=== PATIENT | male | born 1945 | race Caucasian/White ===

== ENCOUNTER → 2024-08-01 09:02 | Outpatient (REF) | payer MEDICARE, OTHER, SELFPAY | LOC: RAD 09:02 | PROVIDERS: ATTENDING PHYSICIAN Physician Assistant Surgical; FAMILY PHYSICIAN Family Medicine | DX: Z96.651 Presence of right artificial knee joint (principal); M25.561 Pain in right knee | CPT/HCPCS: 78315; A9503 ==

== ENCOUNTER → 2025-03-31 11:27 | Outpatient (REF) | payer MEDICARE, OTHER, SELFPAY | LOC: HWRAD 11:27 | PROVIDERS: ATTENDING PHYSICIAN Internal Medicine Hematology & Oncology; FAMILY PHYSICIAN Family Medicine | DX: D53.1 Other megaloblastic anemias, not elsewhere classified (principal); D51.3 Other dietary vitamin B12 deficiency anemia; R53.83 Other fatigue | CPT/HCPCS: 76700 ==